=== PATIENT | male | born 2000 | race African-American/Black ===

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

== ENCOUNTER 2020-02-04 14:57 | Emergency (ER) | payer OTHER ==
[~2020-02-04] VITALS: Ht 185.4 cm; Wt 113.6 kg
[~2020-02-04 14:57] MED LIST changes: +HYDR25TA PO; +OMEP20CA16 PO
--- NOTE | 2020-02-04 15:09 | PHYS DOC ---
Past History Past Medical History: No Pertinent History Past Surgical History: Appendectomy Smoking: Non-smoker Alcohol Use: None Drug Use: None General Adult EDM: Chief Complaint: Sore throat, headache HPI: HPI: Patient presents with complaint of sore throat, headache, mild ear pain, congestion for the past couple of days. No fever or chills. No known coronavirus exposure. His significant other has been feeling sick with similar symptoms. He has been taking Mucinex, ibuprofen, other [id number] medications without relief. No cough or shortness of breath. Review of Systems: Review of Systems: All other systems negative except as documented in HPI. Heart Score: Risk Factors: Risk Factors: DM, Current or recent (<one month) smoker, HTN, HLP, family history of CAD, obesity. Risk Scores: Score 0 - 3: 2.5% MACE over next 6 weeks - Discharge Home Score 4 - 6: 20.3% MACE over next 6 weeks - Admit for Clinical Observation Score 7 - 10: 72.7% MACE over next 6 weeks - Early Invasive Strategies Allergies: Allergies: Allergies Coded Allergies Type Severity Reaction Last Updated Verified iodine Allergy Mild Rash 12/28/13 No Physical Exam: PE: Constitutional: Well developed, well nourished, no acute distress, non-toxic appearance. [] HENT: Normocephalic, atraumatic, bilateral external ears normal, oropharynx moist, posterior pharynx shows moderate erythema without exudate. Eyes: PERRLA, EOMI, conjunctiva normal, no discharge. [] Neck: Normal range of motion, no tenderness, supple, no stridor. No lymphadenopathy. Cardiovascular:Heart rate regular rhythm, no murmur [] Lungs & Thorax: Bilateral breath sounds clear to auscultation [] Skin: Warm, dry, no erythema, no rash. [] Back: No tenderness, no CVA tenderness. [] Extremities: No tenderness, no cyanosis, no clubbing, ROM intact, no edema. [] Neurologic: Alert and oriented X 3, normal motor function, normal sensory function, no focal deficits noted. [] Psychologic: Affect normal, judgement normal, mood normal. [] EKG: EKG: [] Radiology/Procedures: Radiology/Procedures: [] Course & Med Decision Making: Course & Med Decision Making Pertinent Labs and Imaging studies reviewed. (See chart for details) Patient seen for symptoms consistent with upper respiratory infection. Strep is negative. Will start prednisone to help with symptoms and discharge home. Dragon Disclaimer: Dragon Disclaimer: This electronic medical record was generated, in whole or in part, using a voice recognition dictation system. Departure Departure: Impression: Primary Impression: Viral upper respiratory illness Disposition: HOME/RESIDENCE PRIOR TO ADM Condition: STABLE Referrals: CAREN MICHEL MD (PCP) Follow up as needed. Patient Instructions: Upper Respiratory Infection, Adult Additional Instructions: Continue to push oral fluids. Take ibuprofen and Tylenol for headache. Scripts Prednisone (PREDNISONE) 50 Mg Tablet 50 MG PO DAILY for URI for 5 Days, #5 TAB Prov: CELINE TSANG DO 02/04/20 Justification of Admission: Justification of Admission: Justification of Admission Dx: N/A CELINE TSANG DO Feb 04, 2020 15:08
[2020-02-04 15:24] VITALS: BP 154/99
[2020-02-04] MEDS ORDERED: PRED50TA PO (15:44)
== END 2020-02-04 15:47 | disposition home or self-care (01) ==
LOC: ER 14:57
DX: J06.9 Acute upper respiratory infection, unspecified (principal); Z88.8 Allergy status to other drugs, medicaments and biological substances
CPT/HCPCS: 87070; 87880; 99283